=== PATIENT | male | born 2000 | race Caucasian/White ===

== ENCOUNTER 2020-08-14 13:09 | Emergency (ER) | payer OTHER, SELFPAY ==
[2020-08-14 13:20] VITALS: BP 147/94; PULSE 103; RESP 18; TEMP 36.6; O2SAT 98
--- NOTE | 2020-08-14 13:20 | ED.URI ---
HPI - URI/Sore Throat General Chief Complaint: Upper Respiratory Infection Stated Complaint: spots on back of throat Time Seen by Provider: 08/14/20 13:31 Source: patient and RN notes reviewed Mode of arrival: ambulatory Limitations: no limitations History of Present Illness HPI Narrative: 19-year-old male presents concern for white spots on his throat and uvula. Reports he noticed spots yesterday. He denies fever, sore throat, cough, shortness of breath, chills, sweats, body aches. Denies any intervention. MD elicited complaint: sore throat Related Data Home Medications Medication Instructions Recorded Confirmed sertraline 100 mg tablet 150 mg PO HS tablet 11/29/19 08/14/20 Allergies Allergy/AdvReac Type Severity Reaction Status Date / Time No Known Allergies Allergy Verified 08/14/20 13:27 Review of Systems Review of Systems: Narrative: CONSTITUTIONAL: Denies malaise, chills, sweats, or fever. EYES: Denies visual changes, redness, or discharge. ENT: Denies rhinorrhea, congestion, sinus pain, otalgia and sore throat. Reports white spots on his throat CARDIOVASCULAR: Denies chest pain, palpitations, or edema. RESPIRATORY: Denies cough or dyspnea. GASTROINTESTINAL: Denies abdominal pain, nausea, vomiting, diarrhea SKIN: Denies rash or itching. MUSCULOSKELETAL: Denies myalgia. NEUROLOGIC: Denies headache. All systems reviewed & are unremarkable except as noted in HPI and below PMFSH Family History Family History Mother Family history of diabetes mellitus in first degree relative Family history of type 2 diabetes mellitus Social History Social History Smoking status: Never smoker Alcohol intake: never Gender identity (if verbalized by the patient): Male Comments At time of signature, agree with nursing past medical, surgical, social and family history. There is no relevant family history pertinent to the presenting complaint Exam Narrative: Exam Narrative: GENERAL: Well-appearing, well-nourished, and in no acute distress. HEAD: Normocephalic EYES: PERRLA, conjunctivae clear ENT: Nares clear, turbinates pink, no discharge. Mucous membranes moist. TM pearly cervantes with dull light reflex bilaterally; no tragal tenderness. Oropharynx erythematous with exudate, without lesions. No drooling, no hoarseness, no trismus, uvula midline. NECK: Supple. No lymphadenopathy CHEST: Clear to auscultation, breath sounds equal. No wheezing, rhonchi, rales, or stridor. No respiratory distress, speaks in full sentences. HEART: Regular rate and rhythm. No murmur heard. SKIN: Warm, dry, no rash. NEURO: Alert and oriented x3. PSYCH: Normal mood and affect Course Course Emergency Course: Patient is aware of diagnosis, understands and agrees to treatment plan. Anticipatory guidance given. Patient agrees to follow-up as directed and is aware of reasons to seek care at the emergency department. Portions of this record may have been created with voice recognition software Vital Signs Vital signs: Vital Signs Temperature 97.8 F 08/14/20 13:20 Pulse Rate 103 H 08/14/20 13:20 Respiratory Rate 18 08/14/20 13:20 Blood Pressure 147/94 H 08/14/20 13:20 Pulse Oximetry 98 08/14/20 13:20 Temperature 97.8 F 08/14/20 13:20 Pulse Rate 103 H 08/14/20 13:20 Respiratory Rate 18 08/14/20 13:20 Blood Pressure 147/94 H 08/14/20 13:20 Pulse Oximetry 98 08/14/20 13:20 Reviewed. Pt has been instructed to follow up with his primary care provider within the next week regarding his elevated blood pressure today. MDM - URI/Sore Throat MDM Narrative Medical decision making narrative: Differential diagnosis considered: Villar virus, strep pharyngitis, allergic rhinitis, upper respiratory tract infection, sinusitis, rhinosinusitis, nasopharyngitis. viral pharyngitis, otitis media, otitis externa, pneumonia, bronchitis, ethel
== END 2020-08-14 13:46 | disposition home or self-care (01) ==
PROVIDERS: Emergency Provider Nurse Practitioner; PCP Family Medicine
DX: J02.0 Streptococcal pharyngitis (principal)
CPT/HCPCS: 87880; 99213; G0463

== ENCOUNTER 2024-04-21 08:32 | Outpatient (CLI) | payer OTHER, SELFPAY ==
[2024-04-21 08:58] LABS: Basophils Percent Auto 0.5 % (0.2-1.2); Eosinophils Absolute Auto 0.2 K/mm3 (0-0.3); Eosinophils Percent Auto 1.8 % (0-4.4); Hematocrit 50.6 % (42.0-52.0); Hemoglobin 17.6 g/dL (14.0-18.0); Immature Granulocyte Absolute 0.03 K/mm3 (0.00-0.031); Immature Granulocyte Percent A 0.4 % (0-0.5); Lymphocytes Absolute Auto 2.78 K/mm3 (0.9-3.2); Lymphocytes Percent Auto 33.7 % (18.3-44.2); Mean Corpuscular HGB Conc 34.8 g/dl (32-36); Mean Corpuscular Volume 80.4 fl (80-100); Mean Platelet Volume 11.1 fl (7.4-10.4); Monocytes Absolute Auto 0.6 K/mm3 (0.1-0.6); Monocytes Percent Auto 7.5 % (2.6-8.5); Neutrophils Absolute Auto 4.6 K/mm3 (1.3-6.7); Neutrophils Percent Auto 56.1 % (45.5-73.1); Platelet Count Result 236 k/mm3 (150-375); Red Blood Count 6.29 M/mm3 (4.6-6.20); Red Cell Distribution Width 13.1 % (11.5-14.5); White Blood Count 8.3 K/mm3 (4.5-10.0)
[2024-04-21 09:15] LABS: Alanine Aminotransferase 63 U/L (6-50); Albumin Level 4.8 g/dL (3.5-5.1); Alkaline Phosphatase 72 U/L (38-126); Amylase 67 U/L (30-110); Anion Gap 12 mmol/L (4-12); Aspartate Amino Transferase 51 U/L (17-59); Bilirubin,Total 1.3 mg/dL (0.2-1.3); Blood Urea Nitrogen 8 mg/dL (9-20); Calcium 9.3 mg/dL (8.4-10.2); Carbon Dioxide 29 mmol/L (22-30); Chloride 96 mmol/L (98-107); Estimated Glomerular Filt Rate > 60; Glucose 263 mg/dL (65-110); Lipase 45 U/L (23-300); Potassium 4.2 mmol/L (3.4-5.0); Sodium 137 mmol/L (137-145)
== END 2024-04-21 08:33 | disposition home or self-care (01) ==
PROVIDERS: PCP Family Medicine; Visit Provider Nurse Practitioner Adult Health
DX: R10.9 Unspecified abdominal pain (principal); R19.7 Diarrhea, unspecified
CPT/HCPCS: 36415; 80053; 82150; 83690; 85025

== ENCOUNTER 2024-04-22 11:52 | Outpatient (CLI) | payer OTHER, SELFPAY | END 2024-04-22 11:53 | disposition home or self-care (01) | LOC: ANHLAB 11:53 | PROVIDERS: PCP Family Medicine; Visit Provider Nurse Practitioner Adult Health | DX: R10.9 Unspecified abdominal pain (principal); R19.7 Diarrhea, unspecified | CPT/HCPCS: 87045; 87427; 87449 ==

== ENCOUNTER 2024-04-30 07:16 | Outpatient (CLI) | payer OTHER, SELFPAY ==
--- NOTE | ~2024-04-30 | US_ITS ---
EXAMINATION: US abdomen complete DATE: 04/30/2024 07:43 INDICATION: Unspecified abdominal pain. TECHNIQUE: Multiple grayscale and Doppler ultrasound images of the abdomen were obtained. COMPARISON: Ultrasound 11/07/2016 FINDINGS: The pancreas is obscured by bowel gas. There is diffuse hepatic steatosis with focal sparin g in the gallbladder fossa. There is normal flow in main portal vein. The gallbladder is normal in si ze. No gallstones or gallbladder wall thickening. There is no sonographic Heaton's sign. The common d uct is normal and measures 5 mm. The kidneys are normal in size. The spleen is normal in size. Abdomi nal aorta and inferior vena cava are obscured by bowel gas. IMPRESSION: 1. Diffuse hepatic steatosis. Reviewed, dictated and finalized at location A.
== END 2024-04-30 07:17 ==
PROVIDERS: PCP Family Medicine; Visit Provider Nurse Practitioner Adult Health
DX: R10.9 Unspecified abdominal pain (principal); R19.7 Diarrhea, unspecified; K76.0 Fatty (change of) liver, not elsewhere classified
CPT/HCPCS: 76700

== ENCOUNTER 2024-05-30 10:18 | Outpatient (CLI) | payer OTHER, SELFPAY ==
[2024-05-30 11:00] LABS: Alanine Aminotransferase 55 U/L (6-50); Albumin Level 4.5 g/dL (3.5-5.1); Alkaline Phosphatase 79 U/L (38-126); Anion Gap 11 mmol/L (4-12); Aspartate Amino Transferase 37 U/L (17-59); Blood Urea Nitrogen 14 mg/dL (9-20); Calcium 9.3 mg/dL (8.4-10.2); Carbon Dioxide 26 mmol/L (22-30); Chloride 99 mmol/L (98-107); Estimated Glomerular Filt Rate > 60; Glucose 254 mg/dL (65-110); Potassium 4.1 mmol/L (3.4-5.0); Sodium 136 mmol/L (137-145)
[2024-05-30 14:33] LABS: Hepatitis B Surface Antigen Negative (Negative)
[2024-05-30 14:39] LABS: HAV RESULT Negative (Negative); Hepatitis B Core IgM Result Negative (Negative)
[2024-05-30 14:51] LABS: Hepatitis C Virus Antibody Negative (Negative)
[2024-05-31 03:19] LABS: GGT 50 U/L (3-70)
== END 2024-05-30 10:19 | disposition home or self-care (01) ==
LOC: ANHLAB 10:20
PROVIDERS: PCP Family Medicine; Visit Provider Nurse Practitioner Adult Health
DX: R73.01 Impaired fasting glucose (principal); R74.01 Elevation of levels of liver transaminase levels
CPT/HCPCS: 36415; 80053; 80074; 82248; 82977